=== PATIENT | male | born 1935 | race Caucasian/White ===

== ENCOUNTER 2017-03-21 15:31 | Outpatient (CLI) | payer MEDICARE, OTHER ==
[~2017-03-21] VITALS: Ht 167.6 cm; Wt 81.4 kg
[2017-03-21 15:37] VITALS: BP 113/76; PULSE 81; RESP 18; Ht 167.6 cm; Wt 81.4 kg
[2017-03-21] MEDS ORDERED: TRAZ50TA18 PO (15:45)
[2017-03-21] MEDS ORDERED: SIMV20TA PO (15:45)
[2017-03-21] MEDS ORDERED: CHOL400T10 PO (15:45)
[2017-03-21] MEDS ORDERED: ASPI-664 PO (15:45)
[2017-03-21] MEDS ORDERED: TAMS0.4C2 PO (15:45)
--- NOTE | 2017-03-21 15:54 | PN ---
Date/Time of Note Date/Time of Note DATE: 03/21/17 TIME: 15:53 Assessment/Plan Assessment/Plan Assessment/Plan [facility] Progress Note Date of Service: 03/21/17 Today's Impression & Plan: Overall stable and improved. Abd remains benign. No indication for acute surgical intervention. No further discharge from drain site. 1. F/u with Dr. Guzman 2. F/u with us prn 3. Needs upper endoscopy evaluation in 1-2 months Thank you very much for allowing us to participate in the care of this very nice patient and wonderful family. If there are any questions, please feel free to contact me at . Please note: Spelling or grammatical errors in this note are likely due to EHR/ dictation systems and are not reflective of patient care quality. Also please note that the dictation timestamp of this note does not necessarily reflected time of the visit for this service. Updated Clinical Summary: The patient is a very pleasant 81-year-old gentleman with known history of dyslipidemia admitted to [facility] through the emergency department with signs and symptoms consistent with perforated viscus supported by history, physical exam, normal WBC , and CT findings concerning for free air in the abdomen and some fluid and signs consistent with perforated duodenal or gastric ulcer. No evidence of any mass process. Patient did report 10-12 pound weight loss over the last 6 months. S/p an otherwise uncomplicated laparoscopic repair of perforated gastric ulcer with Mele patch and abdominal lavage on 03/04/17 with findings of a single perforation on the anterior surface of the antrum of stomach. CT abd/pelvis with Gastrografin showed no definitive leak from repair site on 03/05/17. D/c home 03/09/17. Comorbidities: 1. Perforated gastric ulcer. S/p an otherwise uncomplicated laparoscopic repair of perforated gastric ulcer with Mele patch and abdominal lavage on 03/04/17 with findings of a single perforation on the anterior surface of the antrum of stomach. 2. Dyslipidemia Subjective: No major events or complaints overnight. No major pain complaints and under control with medications. No N/V, SOB or CP. + bowel activity. Objective: Vitals: reviewed; please also see EHR Physical Exam: Lungs: breathing comfortably without tachypnea; no audible wheezes, rales or rhonchi on gross exam Abd: Soft, non-tender, and non-distended; no peritoneal signs or guarding; incisions c/d/i w/o obvious e/e/d/h. Surgical drain site clean. Skin: Appears pink and feels warm to touch. Neuro: Awake, alert and follows commands appropriately ROSANGELA ANTONIO M.D. March 21, 2017 15:50
== END 2017-03-21 16:30 | disposition home or self-care (01) ==
LOC: HPC 15:31
PROVIDERS: ATTEND Transplant Surgery
DX: Z09 Encounter for follow-up examination after completed treatment for conditions other than malignant neoplasm (principal); Z87.19 Personal history of other diseases of the digestive system; E78.5 Hyperlipidemia, unspecified
CPT/HCPCS: G0463